=== PATIENT | male | born 1955 | race Caucasian/White ===

== ENCOUNTER 2016-05-08 16:19 | Inpatient (IN) | payer BC ==
[2016-05-08] MEDS ORDERED: ACETAMINOPHEN 325 MG TABLET (FP) PO ONE (20:39)
[2016-05-08] MEDS ORDERED: SODIUM CHLORIDE 1,000 ML IV STA (20:39)
--- NOTE | 2016-05-08 20:47 | PDOC ---
History of Present Illness - General History Source: Patient Exam Limitations: No Limitations <Yomi Ozuna - Last Filed: 05/08/16 23:54> - History of Present Illness Initial Comments: 05/08/16 22:04 The patient is a 61 year old male, with a significant past medical history of hypertension, pulmonary embolism (10 years ago), celiac disease, and hyperlipidemia, who presents to the emergency department with lightheadedness and frontal headache since 3PM today. He states he left work at the onset of his symptoms secondary to his symptoms to get peanuts and a drink from the store. He states he recognized that he could not drive home so he called his relative (Eulogio Castillo) to pick him up from work and bring him to the ED. Upon the patients arrival he got out of the car, felt lightheaded and fell to the floor hitting his face on the cone. He denies losing consciousness. He states his headaches today have been intermittent and aches. The patient also states he has been feeling nauseous today. The patient states he was seeing Dr. Chava Garza, however, is now looking for a new PCP that will accept his insurance. The patient reports that he had years of this frontal tension like headaches but never got it checked out. He does have a family history where his twin brother got a stroke several months ago. He denies chest pain, shortness of breath, and dizziness. He denies fever, chills, vomit, diarrhea and constipation. She denies dysuria, frequency, urgency and hematuria. Allergies: NKDA Social history: denies all toxic habits <Brittany Delgado - Last Filed: 05/09/16 00:20> - General Chief Complaint: Lightheaded Stated Complaint: DIZZINESS Time Seen by Provider: 05/08/16 19:39 Past History - Psycho/Social/Smoking Cessation Hx Suicidal Ideation: No Smoking Status: No Smoking History: Never smoked Number of Cigarettes Smoked Daily: 0 <Yomi Ozuna - Last Filed: 05/08/16 23:54> <Brittany Delgado - Last Filed: 05/09/16 00:20> - Past Medical History Allergies/Adverse Reactions: Allergies Allergy/AdvReac Type Severity Reaction Status Date / Time No Known Allergies Allergy Verified 05/08/16 16:31 Home Medications: Ambulatory Orders Amox-Tr/K Cl [Augmentin 875mg Tablet -] 1 tab PO BID #20 tablet 12/15/12 Atorvastatin Calcium [Lipitor] 20 mg PO 12/15/12 Review of Systems - Review of Systems Able to Perform ROS?: Yes Comments:: 05/08/16 22:04 GENERAL/CONSTITUTIONAL: No fever or chills. No weakness. HEAD, EYES, EARS, NOSE AND THROAT: No change in vision. No ear pain or discharge. No sore throat. CARDIOVASCULAR: No chest pain or shortness of breath. RESPIRATORY: No cough, wheezing, or hemoptysis. GASTROINTESTINAL: (+) nausea. No vomiting, diarrhea or constipation. GENITOURINARY: No dysuria, frequency, or change in urination. MUSCULOSKELETAL: No joint or muscle swelling or pain. No neck or back pain. SKIN: No rash NEUROLOGIC: (+) headache and lightheadedness. No vertigo, loss of consciousness , or change in strength/sensation. ENDOCRINE: No increased thirst. No abnormal weight change. HEMATOLOGIC/LYMPHATIC: No anemia, easy bleeding, or history of blood clots. ALLERGIC/IMMUNOLOGIC: No hives or skin allergy. <Brittany Delgado - Last Filed: 05/09/16 00:20> *Physical Exam - Vital Signs Last Vital Signs Temp Pulse Resp BP Pulse Ox 97.6 F 91 H 17 145/95 95 05/08/16 16:31 05/08/16 16:31 05/08/16 16:31 05/08/16 16:31 05/08/16 16:31 <Yomi Ozuna - Last Filed: 05/08/16 23:54> - Vital Signs Last Vital Signs Temp Pulse Resp BP Pulse Ox 97.6 F 91 H 17 145/95 95 05/08/16 16:31 05/08/16 16:31 05/08/16 16:31 05/08/16 16:31 05/08/16 16:31 - Physical Exam Comments: 05/08/16 22:06 GENERAL: Awake, alert, and fully oriented, in no acute distress HEAD: No signs of trauma EYES: PERRLA, EOMI, sclera anicteric, conjunctiva clear ENT: Auricles normal inspection, hearing grossly normal, nares patent, oropharynx clear without exudates. Moist mucosa NECK: Normal ROM, supple, no lymphadenopathy, JVD, or masses LUNGS: Breath sounds equal, clear to auscultation bilaterally. No wheezes, and no crackles HEART: Regular rate and rhythm, normal S1 and S2, no murmurs, rubs or gallops ABDOMEN: Soft, nontender, normoactive bowel sounds. No guarding, no rebound. No masses EXTREMITIES: Normal range of motion, no edema. No clubbing or cyanosis. No cords, erythema, or tenderness NEUROLOGICAL: Cranial nerves II-XII intact. Normal speech, normal gait. Sensation intact in upper and lower extremities. 5/5 motor strength in upper and lower extremities. Finger to nose intact. Rapid alternations intact. SKIN: (+) small abrasions to the left cheek. Warm, Dry, normal turgor, no rashes or lesions noted. <Brittany Delgado - Last Filed: 05/09/16 00:20> Heart Score/ECG Review #1 ECG reviewed & interpreted by me at: 22:00 05/08/16 22:57 NSR 87, TWI III, T wave flat aVF, V2, no std/mitzi, QTC 471 msec, no brugada, no HOCM, no WPW <Yomi Ozuna - Last Filed: 05/08/16 23:54> ED Treatment Course - LABORATORY CBC & Chemistry Diagram: 05/08/16 20:30 05/08/16 20:30 - RADIOLOGY Radiology Studies Ordered: Category Date Time Status HEAD CT WITHOUT CONTRAST [CT] Stat CT Scan 05/08/16 20:36 Ordered CHEST PA & LAT [RAD] Stat Radiology 05/08/16 20:36 Ordered <Yomi Ozuna - Last Filed: 05/08/16 23:54> - LABORATORY CBC & Chemistry Diagram: 05/08/16 20:30 05/08/16 20:30 - ADDITIONAL ORDERS Additional order review: Laboratory Results 05/08/16 20:30 Sodium 138 Potassium 4.4 Chloride 104 Carbon Dioxide 27 Anion Gap 7 L BUN 15 Creatinine 1.0 D Creat Clearance w eGFR > 60 Random Glucose 106 Calcium 9.2 Total Bilirubin 0.5 D AST 40 H D ALT 47 D Alkaline Phosphatase 71 Creatine Kinase 138 Troponin I < 0.02 Total Protein 8.5 H Albumin 4.7 05/08/16 20:30 RBC 5.15 MCV 95.8 MCHC 32.9 RDW 12.5 MPV 8.0 Neutrophils % 83.3 H Lymphocytes % 10.8 Monocytes % 4.6 Eosinophils % 0.3 Basophils % 1.0 - RADIOLOGY Radiograph Interpretation: 05/09/16 00:19 EXAM: CT brain without contrast was read by Keron Horton MD 05/08/2016 23:49 EST FINDINGS: No acute intracranial abnormality. No bleed. No visible infarct or mass. Please note that the proximal right middle cerebral artery is slightly dense but not dense enough to consider thrombus. Probably due to hemoconcentration. Nevertheless, correlate with any right hemispheric symptoms. <Brittany Delgado - Last Filed: 05/09/16 00:20> Medical Decision Making - Medical Decision Making 05/08/16 20:43 A portion of this note was documented by scribe services under my direction. I have reviewed the details of the note, within reason, and agree with the documentation with the following case summary and management plan written by me. Patient treated in the ED. Nursing notes are reviewed and incorporated into the medical decision-making. Vital signs reviewed. Peripheral IV access obtained by the nurse, laboratory studies are drawn and sent, reviewed and interpreted by myself. Vital Signs Temp Pulse Resp BP Pulse Ox 97.6 F 91 H 17 145/95 95 05/08/16 16:31 05/08/16 16:31 05/08/16 16:31 05/08/16 16:31 05/08/16 16:31 61-year-old male with history of hypertension, distant pulmonary embolism presents emergency department for lightheadedness and near syncope. 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 At approximately 3:00 PM, the patient had developed sudden onset of a lightheadedness and near syncope. Patient felt unsteady on his feet. He reports that this is distantly very different from peripheral vertigo that he had before. Patient had attempted to get some water and drink water but did not feel better. His coworkers had then brought the patient to the ER for further evaluation. Patient denies chest pain or shortness of breath or palpitations. The patient reported simultaneous frontal tension-like gradual-like headache. Reports that he had years of this frontal tension like headaches but never got it checked out. He does have a family history where his twin brother got a stroke several months ago. The patient is lightheadedness needs to be worked up for near syncope. Cardiac etiology is within the differential. We'll need an EKG, labs including troponin and telemetry. However, given the headache for several years, we'll need a head CT. We'll send a d-dimer given history of pulmonary embolism. If positive, we' ll scan for PE. Also, the patient is admitted to the hospital for further evaluation. 05/08/16 23:55 CBC, BMP 05/08/16 20:30 05/08/16 20:30 CMP Sodium 138 mmol/L (136-145) 05/08/16 20:30 Potassium 4.4 mmol/L (3.5-5.1) 05/08/16 20:30 Chloride 104 mmol/L (98-107) 05/08/16 20:30 Carbon Dioxide 27 mmol/L (21-32) 05/08/16 20:30 Anion Gap 7 (8-16) L 05/08/16 20:30 BUN 15 mg/dL (7-18) 05/08/16 20:30 Creatinine 1.0 mg/dL (0.7-1.3) D 05/08/16 20:30 Creat Clearance w eGFR > 60 (>60) 05/08/16 20:30 Random Glucose 106 mg/dL (74-106) 05/08/16 20:30 Calcium 9.2 mg/dL (8.5-10.1) 05/08/16 20:30 Total Bilirubin 0.5 mg/dL (0.2-1.0) D 05/08/16 20:30 AST 40 U/L (15-37) H D 05/08/16 20:30 ALT 47 U/L (12-78) D 05/08/16 20:30 Alkaline Phosphatase 71 U/L (45-117) 05/08/16 20:30 Creatine Kinase 138 IU/L (39-308) 05/08/16 20:30 Troponin I < 0.02 ng/ml (0.00-0.05) 05/08/16 20:30 Total Protein 8.5 g/dl (6.4-8.2) H 05/08/16 20:30 Albumin 4.7 g/dl (3.4-5.0) 05/08/16 20:30 CT head reviewed. No acute findings. 05/08/16 23:55 Chest xray reviewed, pending official radiology read. No acute findings. D-dimer negative. Case discussed with Dr. marie. Will admit under tele obs. requests Dr. Stevens for cards and Dr. López for neuro. Case discussed in detail with admitting physician including history, physical exam and ancillary studies. Admitting physician has assumed care for the patient, will follow all pending diagnostics and will complete the evaluation and treatment. <Yomi Ozuna - Last Filed: 05/08/16 23:54> *DC/Admit/Observation/Transfer - Discharge Dispostion Admit: Yes <Yomi Ozuna - Last Filed: 05/08/16 23:54> <Brittany Delgado - Last Filed: 05/09/16 00:20> Diagnosis at time of Disposition: Near syncope
[2016-05-08 20:53] LABS: EOSINOPHIL 0.3 % (0-4.5); MCH 31.5 pg (25.7-33.7); MCHC 32.9 g/dl (32.0-35.9); MEAN CELL VOLUME 95.8 fl (80-96); NEUTROPHILS 83.3 % (42.8-82.8); PLATELET COUNT 252 K/MM3 (134-434); RDW 12.5 % (11.9-15.9); WHITE BLOOD COUNT 12.5 K/mm3 (4.0-10.0)
[2016-05-08 21:24] LABS: ALBUMIN 4.7 g/dl (3.4-5.0); ANION GAP 7 (8-16); BILIRUBIN,TOTAL 0.5 mg/dL (0.2-1.0); CALCIUM 9.2 mg/dL (8.5-10.1); CO2 27 mmol/L (21-32); GLUCOSE,RANDOM 106 mg/dL (74-106); SGOT/AST 40 U/L (15-37); SGPT/ALT 47 U/L (12-78); TOT PROT 8.5 g/dl (6.4-8.2)
[2016-05-08 21:26] LABS: ALK PHOS 71 U/L (45-117); TROPONIN I < 0.02 ng/ml (0.00-0.05)
[2016-05-08 23:04] LABS: INR 0.95 (0.82-1.09)
[2016-05-08 23:07] LABS: D-DIMER < 200 ng/ml (<200-235)
[2016-05-08] MEDS ORDERED: ACETAMINOPHEN 325 MG TABLET (FP) ONE (23:30)
[2016-05-09] MEDS ORDERED: KETOROLAC TROMETHAMINE 30 MG/1 ML VIAL IVPUSH ONE (00:46)
[2016-05-09] MEDS ORDERED: METOCLOPRAMIDE HCL INJECTION 10 MG/2 ML VIAL IVPB ONE (00:46)
[2016-05-09] MEDS ORDERED: KETOROLAC TROMETHAMINE 30 MG/1 ML VIAL ONE (00:51)
[2016-05-09] MEDS ORDERED: METOCLOPRAMIDE HCL INJECTION 10 MG/2 ML VIAL ONE (00:51)
[2016-05-09 04:24] LABS: TROPONIN I < 0.02 ng/ml (0.00-0.05)
[2016-05-09 08:01] LABS: MCH 32.5 pg (25.7-33.7); MCHC 33.3 g/dl (32.0-35.9); MEAN CELL VOLUME 97.4 fl (80-96); MEAN PLT VOLUME 7.7 fl (7.5-11.1); PLATELET COUNT 197 K/MM3 (134-434); RDW 12.4 % (11.9-15.9); WHITE BLOOD COUNT 6.5 K/mm3 (4.0-10.0)
[2016-05-09 08:37] LABS: ALBUMIN 3.8 g/dl (3.4-5.0); ANION GAP 7 (8-16); CALCIUM 8.7 mg/dL (8.5-10.1); CO2 26 mmol/L (21-32); GLUCOSE,RANDOM 88 mg/dL (74-106); SGOT/AST 31 U/L (15-37); SGPT/ALT 38 U/L (12-78)
[2016-05-09 08:42] LABS: ALK PHOS 56 U/L (45-117); BILIRUBIN,TOTAL 0.7 mg/dL (0.2-1.0); CREATININE 0.9 mg/dL (0.7-1.3); TOT PROT 6.7 g/dl (6.4-8.2); TROPONIN I < 0.02 ng/ml (0.00-0.05)
--- NOTE | 2016-05-09 08:54 | PN ---
Progress Note (short form) - Note Progress Note: Cardiology Consult Dictated 61M w/ HTN, remote hx PE, admitted with light headedness and episode of near syncope. REC: 1. Tele 2. Echo and Carotid US 3. Orthostatics 4. Neuro eval pending
--- NOTE | 2016-05-09 09:27 | CONS ---
DATE OF CONSULTATION: 05/09/2016 REQUESTING PHYSICIAN: Sameera Hernandez MD REASON FOR CONSULTATION: Near-syncope. HISTORY OF PRESENT ILLNESS: The patient is a 61-year-old male with past medical history of hypertension, pulmonary embolism in 2009 after varicose vein surgery, presents to the ER after feeling lightheaded at work with unsteady gait. Upon coming into the emergency room he had an episode of near-syncope. He denies antecedent chest pain, shortness of breath, palpitations. He denies any prior cardiac history. He denies focal weakness, visual changes, or speech disturbances. He denies any recent illnesses preceding this episode. PAST MEDICAL HISTORY: Significant for chronic hypertension. He had a pulmonary embolism in 2009 after varicose vein surgery, for which he was on anticoagulation for a period of time. ALLERGIES: He has no known drug allergies. MEDICATIONS: His home medications include: 1. Lisinopril 10 mg daily. 2. Amlodipine 10 mg daily. FAMILY HISTORY: Negative for early coronary disease or sudden cardiac . SOCIAL HISTORY: He is a nonsmoker. 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 He does not endorse any illegal drug use. PHYSICAL EXAMINATION: Vital Signs: Afebrile, 98.5. Pulse 97 and regular. Blood pressure 129/84. O2 saturation is 100% on room air. Neck: No JVD, no bruits. Heart: S1, S2 regular. No murmurs. Chest: Clear. Abdomen: Soft, nontender. Extremities: No edema. DIAGNOSTIC DATA: EKG: Normal sinus at 87 beats per minute with left atrial enlargement. QTc [address] abnormalities in the inferior leads. LABORATORY: INR 0.95, D-dimer less than 200. CBC: White count 6.5, hematocrit 45, platelets 197, sodium 143. BUN and creatinine 14/0.9. CK and troponin are negative x3 sets. Head CT: No acute intracranial pathology. Calcification of the cavernous coronary arteries is present. Chest x-ray is not officially read, but by my read shows no acute infiltrates or acute pathology. IMPRESSION: A 61-year-old male with hypertension admitted with an episode of lightheadedness and near-syncope. PLAN: 1. Telemetry to rule out cardiac arrhythmias. 2. Echocardiogram for assessment of LV function. 3. Carotid ultrasound. 4. Neuro consultation pending. Thank you for the consultation. Val [id number]
[2016-05-09 11:57] VITALS: BMI 25.4
--- NOTE | 2016-05-09 13:59 | CONSULT ---
Consult Consult Specialty:: Neurology Reason for Consultation:: acute syncope preceded by acute frontal headache - History of Present Illness History of Present Illness: The patient reports having his usual breakfast cereal, then lunch of peanut butter and gluten free pop tart and feeling well until about 90 minutes after lunch he developed a severe frontal headache (usual location for intermittent headaches since his teens) but more severe followed by severe lightheadedness. He was brought to the ED where he collapsed at the doors with syncopal episode with limited LOC. Today he has a moderate steady headache but otherwise feel fine. He knows of no family hx of headache and reports his only medical conditions are hypertension and Celiac Disease. 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: Yes: Migraine Cardio/Vascular: Yes: HTN Gastrointestinal: Yes: Other (celiac disease) - Alcohol/Substance Use Hx Alcohol Use: No - Smoking History Smoking history: Never smoked Aproximately how many cigarettes per day: 0 Home Medications - Allergies Allergies/Adverse Reactions: Allergies Allergy/AdvReac Type Severity Reaction Status Date / Time No Known Allergies Allergy Verified 05/08/16 16:31 - Home Medications Home Medications: Ambulatory Orders Amlodipine Besylate 10 mg PO DAILY 05/09/16 Lisinopril 10 mg PO DAILY 05/09/16 Physical Exam Vital Signs: Vital Signs Temperature 98.0 F 05/09/16 11:48 Pulse Rate 89 05/09/16 11:48 Respiratory Rate 18 05/09/16 11:48 Blood Pressure 151/63 05/09/16 11:48 O2 Sat by Pulse Oximetry (%) 96 05/09/16 11:48 Labs: CBC, BMP 05/09/16 07:50 05/09/16 07:50 Assessment/Plan Headache followed by acute syncope likely Severe Migraine however with HTN must excluded aneurysm with brain MRA and MRI to exclude brainstem infarction not visualized on CT Defer to IM/cardiology for evaluation of cardiac/BP etiology for syncope BRAIN MRI and MRA Suggest no Tylenol or narcotic analgesics that cause rebound headaches Treat prn headache with Toradol IV unless poor renal function or BP poorly controlled then have patient follow up with [facility] as outpatient.
--- NOTE | 2016-05-09 14:07 | HP ---
Admitting History and Physical - Primary Care Physician PCP: Sameera Hernandez - Admission Chief Complaint: syncope History of Present Illness: 61 year old male, with a significant past medical history of hypertension, pulmonary embolism (10 years ago), celiac disease, and hyperlipidemia, who presents to the emergency department with lightheadedness and frontal headache since 3PM today. He states he left work at the onset of his symptoms secondary to his symptoms to get peanuts and a drink from the store. He states he recognized that he could not drive home so he called his relative (Eulogio Castillo) to pick him up from work and bring him to the ED. Upon the patients arrival he got out of the car, felt lightheaded and fell to the floor hitting his face on the cone. He denies losing consciousness. He states his headaches today have been intermittent and aches. The patient reports that he had years of this frontal tension like headaches but never got it checked out. 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 Cardiovascular: Yes: HTN, Hyperlipdemia Gastrointestinal: Yes: Other (celiac disease) - Advance Directives Advance Directives: Yes: Living Will, Health Care Proxy - Smoking History Smoking history: Never smoked Aproximately how many cigarettes per day: 0 - Alcohol/Substance Use Hx Alcohol Use: No Home Medications - Allergies Allergies/Adverse Reactions: Allergies Allergy/AdvReac Type Severity Reaction Status Date / Time No Known Allergies Allergy Verified 05/08/16 16:31 - Home Medications Home Medications: Ambulatory Orders Amlodipine Besylate 10 mg PO DAILY 05/09/16 Lisinopril 10 mg PO DAILY 05/09/16 Physical Examination Vital Signs: Vital Signs Temperature 98.0 F 05/09/16 11:48 Pulse Rate 89 05/09/16 11:48 Respiratory Rate 18 05/09/16 11:48 Blood Pressure 151/63 05/09/16 11:48 O2 Sat by Pulse Oximetry (%) 96 05/09/16 11:48 Constitutional: Yes: No Distress HENT: Yes: Other (bruise left cheek on face) Neck: Yes: Supple Cardiovascular: Yes: Regular Rate and Rhythm Respiratory: Yes: CTA Bilaterally Gastrointestinal: Yes: Normal Bowel Sounds Extremities: Yes: WNL Labs: CBC, BMP 05/09/16 07:50 05/09/16 07:50 Imaging - Results Chest X-ray: Report Reviewed Cat Scan: Report Reviewed Problem List - Problems (1) Near syncope Code(s): R55 - SYNCOPE AND COLLAPSE (2) HTN (hypertension) Code(s): I10 - ESSENTIAL (PRIMARY) HYPERTENSION (3) CD (celiac disease) Code(s): K90.0 - CELIAC DISEASE Assessment/Plan Laboratory Tests 05/08/16 05/08/16 05/08/16 20:30 20:30 22:00 WBC 12.5 H D RBC 5.15 Hgb 16.3 Hct 49.4 H MCV 95.8 MCHC 32.9 RDW 12.5 Plt Count 252 MPV 8.0 Neutrophils % 83.3 H Lymphocytes % 10.8 Monocytes % 4.6 Eosinophils % 0.3 Basophils % 1.0 INR 0.95 PTT (Actin FS) 29.0 D-Dimer < 200 Sodium 138 Potassium 4.4 Chloride 104 Carbon Dioxide 27 Anion Gap 7 L BUN 15 Creatinine 1.0 D Creat Clearance w eGFR > 60 Random Glucose 106 Calcium 9.2 Total Bilirubin 0.5 D AST 40 H D ALT 47 D Alkaline Phosphatase 71 Creatine Kinase 138 Troponin I < 0.02 Total Protein 8.5 H Albumin 4.7 05/09/16 05/09/16 05/09/16 02:30 07:50 07:50 WBC 6.5 D RBC 4.63 Hgb 15.0 Hct 45.1 MCV 97.4 H MCHC 33.3 RDW 12.4 Plt Count 197 D MPV 7.7 Neutrophils % Lymphocytes % Monocytes % Eosinophils % Basophils % INR PTT (Actin FS) D-Dimer Sodium 143 Potassium 4.0 Chloride 110 H Carbon Dioxide 26 Anion Gap 7 L BUN 14 Creatinine 0.9 Creat Clearance w eGFR > 60 Random Glucose 88 Calcium 8.7 Total Bilirubin 0.7 D AST 31 D ALT 38 Alkaline Phosphatase 56 D Creatine Kinase 75 90 Troponin I < 0.02 < 0.02 Total Protein 6.7 D Albumin 3.8 05/09/16 07:50 WBC RBC Hgb Hct MCV MCHC RDW Plt Count MPV Neutrophils % Lymphocytes % Monocytes % Eosinophils % Basophils % INR PTT (Actin FS) D-Dimer Sodium Potassium Chloride Carbon Dioxide Anion Gap BUN Creatinine Creat Clearance w eGFR Random Glucose Calcium Total Bilirubin AST ALT Alkaline Phosphatase Creatine Kinase Cancelled Troponin I Cancelled Total Protein Albumin Active Medications Generic Name Dose Route Start Last Admin Trade Name Freq PRN Reason Stop Dose Admin Acetaminophen 650 mg 05/09/16 15:55 05/09/16 16:48 Tylenol - PO 650 mg Q6H PRN Administration FEVER OR PAIN 1.near syncope doing well on tele head ct wnl mri pending seen by cardio and neuro troponins negative 2.headaches await mri prn tylenol 3.glutean free diet dvt ppx
[2016-05-09] MEDS ORDERED: ACETAMINOPHEN 325 MG TABLET (FP) ONE (15:35)
[2016-05-09] MEDS: ACETAMINOPHEN 325 MG TABLET (FP) PO PRN (15:40)
--- NOTE | 2016-05-09 16:34 | EKG ---
Test Reason : Blood Pressure : / mmHG Vent. Rate : 087 BPM Atrial Rate : 087 BPM P-R Int : 156 ms QRS Dur : 108 ms QT Int : 392 ms P-R-T Axes : 029 033 023 degrees QTc Int : 471 ms NORMAL SINUS RHYTHM POSSIBLE LEFT ATRIAL ENLARGEMENT NONSPECIFIC ST ABNORMALITY ABNORMAL ECG WHEN COMPARED WITH ECG OF 23-MAR-2010 15:57, NO SIGNIFICANT CHANGE WAS FOUND Confirmed by GERSON BOJORQUEZ MD ([id number]) on 05/09/2016 4:34:32 PM Referred By: Confirmed By:GERSON BOJORQUEZ MD
[2016-05-09] MEDS: amLODIPine BESYLATE 10 MG TABLET (FP) PO SCH (19:07)
[2016-05-09] MEDS: LISINOPRIL 10 MG TABLET (FP) PO SCH (19:07)
[2016-05-10] MEDS: ACETAMINOPHEN 325 MG TABLET (FP) PO PRN (09:29)
[2016-05-10] MEDS: LISINOPRIL 10 MG TABLET (FP) PO SCH (09:29)
[2016-05-10] MEDS: amLODIPine BESYLATE 10 MG TABLET (FP) PO SCH (09:29)
--- NOTE | 2016-05-10 09:30 | PN ---
Progress Note, Physician Chief Complaint: feels fine MRI/A nl TELE: Sinus w/ occasional PAC w/ aberrancy Echo and carotid ok D dimer negative TnI - x3 - Current Medication List Current Medications: Active Medications Acetaminophen (Tylenol -) 650 mg PO Q6H PRN PRN Reason: FEVER OR PAIN Last Admin: 05/09/16 15:40 Dose: 650 mg Amlodipine Besylate (Norvasc -) 10 mg PO DAILY [facility] Last Admin: 05/09/16 19:07 Dose: 10 mg Lisinopril (Prinivil) 10 mg PO DAILY [facility] Last Admin: 05/09/16 19:07 Dose: 10 mg - Objective Vital Signs: Vital Signs Temperature 97.7 F 05/10/16 06:00 Pulse Rate 71 05/10/16 06:00 Respiratory Rate 20 05/10/16 06:00 Blood Pressure 129/88 05/10/16 06:00 O2 Sat by Pulse Oximetry (%) 96 05/09/16 22:00 Constitutional: Yes: No Distress, Calm Cardiovascular: Yes: Regular Rate and Rhythm Respiratory: Yes: CTA Bilaterally Gastrointestinal: Yes: Soft Edema: No Neurological: Yes: Alert, Oriented Labs: CBC, BMP 05/09/16 07:50 05/09/16 07:50 INR, PTT INR 0.95 (0.82-1.09) 05/08/16 22:00 - ....Imaging EKG: Image Reviewed Assessment/Plan 61M w/ HTN, remote hx PE, admitted with light headedness and episode of near syncope. REC: Negative work up including D-dimer, serial TnI, telemetry unrevealing, echo with normal LV, carotid US with mild dz and negative MRI/A. No further inpatient work up planned from CV perspective. Would start ASA 81 for mild carotid plaque. Statin. Should have outpatient stress test, for further risk stratification , but this does not need to be done on inpatient basis.
[2016-05-10] MEDS ORDERED: ASPIRIN 81 MG CHEWABLE TABLETS PO SCH (10:00)
--- NOTE | 2016-05-10 13:43 | DS ---
Physical Examination Vital Signs: Vital Signs Temperature 98.4 F 05/10/16 10:00 Pulse Rate 102 H 05/10/16 10:00 Respiratory Rate 18 05/10/16 10:00 Blood Pressure 115/95 05/10/16 10:00 O2 Sat by Pulse Oximetry (%) 96 05/10/16 10:00 Labs: CBC, BMP 05/09/16 07:50 05/09/16 07:50 Discharge Summary Reason For Visit: NEAR SYNCOPE Current Active Problems CD (celiac disease) (Acute) HTN (hypertension) (Acute) Near syncope (Acute) - Instructions Referrals: Sameera Hernandez MD [Staff Physician] - - Home Medications Comprehensive Discharge Medication List: Ambulatory Orders Amlodipine Besylate 10 mg PO DAILY 05/09/16 Lisinopril 10 mg PO DAILY 05/09/16 dc home fu pmd/cardio as out pt need pts pharmacy info
[2016-05-10 13:49] VITALS: BP 101/72; PULSE 91; TEMP 98
--- NOTE | 2016-05-10 14:25 | PN ---
Progress Note, Physician History of Present Illness: Today the patient feels fine. Discussed normal brain MRI and MRAS and offered headache follow up with [facility] headache [facility]. This patient reported having his usual breakfast cereal, then lunch of peanut butter and gluten free pop tart and feeling well until about 90 minutes after lunch he developed a severe frontal headache (usual location for intermittent headaches since his teens) but more severe followed by severe lightheadedness. He was brought to the ED where he collapsed at the doors with syncopal episode with limited LOC. He had moderate steady headache but otherwise feel fine. - Current Medication List Current Medications: Active Medications Acetaminophen (Tylenol -) 650 mg PO Q6H PRN PRN Reason: FEVER OR PAIN Last Admin: 05/10/16 09:29 Dose: 650 mg Amlodipine Besylate (Norvasc -) 10 mg PO DAILY [facility] Last Admin: 05/10/16 09:29 Dose: 10 mg Aspirin (Asa -) 81 mg PO DAILY [facility] Last Admin: 05/10/16 12:00 Dose: 81 mg Lisinopril (Prinivil) 10 mg PO DAILY [facility] Last Admin: 05/10/16 09:29 Dose: 10 mg - Objective Vital Signs: Vital Signs Temperature 98.0 F 05/10/16 13:48 Pulse Rate 91 H 05/10/16 13:48 Respiratory Rate 20 05/10/16 13:48 Blood Pressure 101/72 05/10/16 13:48 O2 Sat by Pulse Oximetry (%) 96 05/10/16 10:00 Constitutional: Yes: Well Nourished Eyes: Yes: Conjunctiva Clear, EOM Intact, PERRL. No: Ptosis HENT: Yes: Atraumatic Neck: Yes: Supple Cardiovascular: Yes: Regular Rate and Rhythm Respiratory: Yes: CTA Bilaterally Neurological: Yes: Alert, Oriented (Motor 5/5 MS with normal tone, sensory intact to LT and Vibration. DTR sym 2/4 UE and LE and gait normal.) Labs: CBC, BMP 05/09/16 07:50 05/09/16 07:50 INR, PTT INR 0.95 (0.82-1.09) 05/08/16 22:00 Assessment/Plan Symptoms free with neg cardiac and neuro evaluation with no evidence of an acute cerebral infarction with Normal brain MRI and MRA Neurologically stable for discharge FU with [facility] headache clinic
== END 2016-05-10 16:35 | disposition home or self-care (01) | DRG 312 ==
LOC: JER 16:19 → JERBED 05-09 01:24 → UNDOADMOB 05-09 01:24 → JERBED 05-09 01:37 → OBSVTOIN 05-09 01:37 → J4S 05-09 13:00
PROVIDERS: ADMIT Internal Medicine; ATTEND Internal Medicine
DX: R55 Syncope and collapse (principal); K90.0 Celiac disease; I10 Essential (primary) hypertension; E78.5 Hyperlipidemia, unspecified
CPT/HCPCS: 36415; 70450-TC; 70544-TC; 70551-TC; 71020-TC; 80053; 82550; 84484; 85025; 85027; 85379; 85610; 85730; 93005; 93010; 93306-TC; 93880-TC; 99285-25